=== PATIENT | female | born 1995 | race Two or more races ===

== ENCOUNTER 2020-05-25 16:33 | Emergency (ER) | payer OTHER ==
[~2020-05-25] VITALS: Ht 157.5 cm; Wt 115.7 kg
[2020-05-25] MEDS ORDERED: PRENATABS RX T1 EACH PO (16:44)
[2020-05-25] MEDS ORDERED: FOLIC ACID0.8 M1 PO (16:45)
== END 2020-05-25 20:12 | disposition home or self-care (01) ==
LOC: ER 16:33
DX: O26.891 Other specified pregnancy related conditions, first trimester (principal); Z03.818 Encounter for observation for suspected exposure to other biological agents ruled out; R53.81 Other malaise; Z3A.12 12 weeks gestation of pregnancy

== ENCOUNTER 2020-10-22 16:35 | Outpatient (CLI) | payer OTHER ==
[~2020-10-22 16:35] MED LIST: FOLIC ACID0.8 M1 PO; PRENATABS RX T1 EACH PO
== END 2020-10-22 17:27 | disposition home or self-care (01) ==
LOC: NST 16:35
PROVIDERS: ATTEND Obstetrics & Gynecology
DX: Z34.83 Encounter for supervision of other normal pregnancy, third trimester (principal)

== ENCOUNTER → 2020-10-24 | Outpatient (CLI) | payer OTHER | END | disposition home or self-care (01) | LOC: NST 00:19 | PROVIDERS: ATTEND Obstetrics & Gynecology | DX: Z34.83 Encounter for supervision of other normal pregnancy, third trimester (principal) ==

== ENCOUNTER 2020-11-08 13:04 | Outpatient (CLI) | payer OTHER | END 2020-11-08 13:55 | disposition home or self-care (01) | LOC: NST 13:04 | PROVIDERS: ATTEND Obstetrics & Gynecology | DX: Z34.83 Encounter for supervision of other normal pregnancy, third trimester (principal) ==

== ENCOUNTER 2020-11-12 22:27 | Outpatient (CLI) | payer OTHER | END 2020-11-12 22:45 | disposition home or self-care (01) | LOC: NST 22:27 | PROVIDERS: ATTEND Obstetrics & Gynecology | DX: Z34.83 Encounter for supervision of other normal pregnancy, third trimester (principal) ==

== ENCOUNTER 2020-11-16 14:45 | Inpatient (IN) | payer OTHER ==
[~2020-11-16] VITALS: Ht 157.5 cm; Wt 124.7 kg
== END 2020-11-26 15:49 | DRG 807 ==
LOC: OB/GYN 11-24 06:38 → LDR 11-24 06:38 → OB/GYN 11-24 12:27 → LDR 12-01 14:45
PROVIDERS: ADMIT Obstetrics & Gynecology; ATTEND Obstetrics & Gynecology
PROC: 10E0XZZ Delivery of Products of Conception, External Approach (ICD-10-PCS; principal; 2020-11-24)
PROC: 4A0HXFZ Measurement of Products of Conception, Cardiac Rhythm, External Approach (ICD-10-PCS; 2020-11-24)
DX: O80 Encounter for full-term uncomplicated delivery (principal); Z37.0 Single live birth; Z3A.39 39 weeks gestation of pregnancy; Z20.822 Contact with and (suspected) exposure to COVID-19